=== PATIENT | female | born 1965 | race Caucasian/White ===

== ENCOUNTER 2021-05-31 03:21 | Emergency (ER) | payer BC, OTHER ==
[2021-05-31] MEDS ORDERED: LORazepam 2 MG/ML SDV IVPUSH ONE (03:40)
== END 2021-05-31 05:12 | disposition home or self-care (01) ==
LOC: JD.ED 03:21
DX: R55 Syncope and collapse (principal); F41.9 Anxiety disorder, unspecified
CPT/HCPCS: 36415; 80053; 83735; 84484; 85025; 85379; 93005; 96374; 99284; J2060; 93010